=== PATIENT | female | born 1940 | race Caucasian/White ===

== ENCOUNTER 2019-08-03 07:45 | Day surgery (SDC) | payer OTHER ==
[2019-08-03 08:21] VITALS: BMI 32.3
[2019-08-03] MEDS ORDERED: PROPOFOL 20 ML ONE ×2 (08:32)
[2019-08-03] MEDS ORDERED: LIDOCAINE HCL/PF 2% SDV 5ML VIAL ONE (08:32)
[2019-08-03 10:11] VITALS: BP 109/71; PULSE 77; TEMP 98
--- NOTE | 2019-08-05 14:57 | PATH ---
Surgical Pathology Report Patient Name: JOSÉ ANTONIO ALVARADO [facility]. Rec. #: [id number] /Age/Gender: 1940 (Age: 79) / F Account: [id number] Location: [facility] Taken: 08/03/2019 Received: 08/03/2019 Reported: 08/05/2019 Physicians: Omero Mcpherson M.D. Specimen(s) Received A: POLYP HEPATIC FLEXURE B: POLYP SIGMOID COLON Clinical History History of polyps Postoperative diagnosis: Colon polyps, diverticulum Final Diagnosis A. HEPATIC FLEXURE, POLYP, BIOPSY: HYPERPLASTIC POLYP. B. SIGMOID COLON, POLYP, BIOPSY: HYPERPLASTIC POLYP. Electronically Signed Cary Birch M.D. Gross Description A. Received in formalin, labeled "biopsy polyp hepatic flexure" is a suazo, irregular portion of soft tissue measuring 0.3 cm. in greatest dimension. The specimen is submitted in toto in one cassette. B. Received in formalin, labeled "biopsy polyp sigmoid colon" is a suazo, irregular portion of soft tissue measuring 0.3 cm. in greatest dimension. The specimen is submitted in toto in one cassette. 08/04/2019 saudi08/04/2019
== END 2019-08-03 10:05 | disposition home or self-care (01) ==
LOC: FASU-ENDO 07:45
PROVIDERS: ATTEND Internal Medicine Gastroenterology
PROC: 0DBL8ZX Excision of Transverse Colon, Via Natural or Artificial Opening Endoscopic, Diagnostic (ICD-10-PCS; 2019-08-03)
PROC: 0DBN8ZX Excision of Sigmoid Colon, Via Natural or Artificial Opening Endoscopic, Diagnostic (ICD-10-PCS; principal; 2019-08-03 09:10)
DX: Z86.010 Personal history of colon polyps (principal); D12.3 Benign neoplasm of transverse colon; D12.5 Benign neoplasm of sigmoid colon; K57.30 Diverticulosis of large intestine without perforation or abscess without bleeding
CPT/HCPCS: 88305-TC